=== PATIENT | female | born 1930 | race Caucasian/White ===

== ENCOUNTER 2017-06-14 03:30 | Emergency (ER) | payer MEDICARE, OTHER ==
[~2017-06-14] VITALS: Ht 160 cm; Wt 65.8 kg
[~2017-06-14 03:30] MED LIST: ALBU90OI INH; ASCO1ER; ASCO500; ASPI81EC; ASPI81EC PO; AZIT250 PO; HYDACE5 PO; HYDCHLSU PO; LOSA50; NAPR500 PO; PANT20 PO; PROCODE120 PO; TIOT18 IH; UBID10; VALD20; [UNRECOGNIZED DRUG - OTHER]
[2017-06-14 04:05] LABS: Source, Urine Clean Catch
[2017-06-14 04:24] LABS: Bilirubin, Urine Neg (Neg); Blood, Urine 3+ (Neg); Glucose Qualitative, Urine Neg (Neg); Ketones, Urine Neg (Neg); Leukocyte Esterase, Urine Neg (Neg); Nitrite, Urine Neg (Neg); Protein, Urine Neg (Neg); Urobilinogen, Urine NORM (Normal)
[2017-06-14 04:47] LABS: Appearance, Urine Clear (Clear); Color, Urine Pale Yellow (P-Yellow)
[2017-06-14 04:51] LABS: Bacteria Not Seen /hpf; Red Blood Cells, Urine 0-2 /hpf (0-2); Squamous Epithelial Cells Rare /hpf (Few); White Blood Cells, Urine 0-2 /hpf (0-5)
[2018-03-31] MEDS ORDERED: HYDPAM25 (12:08)
[2018-03-31] MEDS ORDERED: AMIT25 PO (12:08)
[2018-03-31] MEDS ORDERED: MIRT15 PO (12:08)
[2018-03-31] MEDS ORDERED: ZOLP5 PO (12:09)
[2018-03-31] MEDS ORDERED: Benadryl25 MG PO (12:38)
[2018-05-08] MEDS ORDERED: NAPR220 PO (17:54)
== END 2017-06-14 05:06 | disposition home or self-care (01) ==
LOC: ER 03:30
PROVIDERS: Physician Assistant
DX: R68.2 Dry mouth, unspecified (principal); Z79.899 Other long term (current) drug therapy; Z79.82 Long term (current) use of aspirin; Z79.2 Long term (current) use of antibiotics; I10 Essential (primary) hypertension
CPT/HCPCS: 80053; 81001; 83036; 85025; 86038; 86160; 86225; 86235; 99283

== ENCOUNTER 2017-06-28 04:01 | Emergency (ER) | payer MEDICARE, OTHER ==
[~2017-06-28] VITALS: Ht 160 cm; Wt 63.5 kg
[2017-06-28 05:30] LABS: Calcium, Ionized (POC) 1.16 mmol/L (1.10-1.46); Chloride (POC) 102 mmol/L (98-108); Creatinine (POC) 0.7 mg/dL (0.6-1.0); Glucose (ISTAT POC) 120 mg/dL (70-99); Hemoglobin (POC) 12.9 g/dL (12.0-16.0); Potassium (POC) 3.9 mmol/L (3.5-5.5); Sodium (POC) 142 mmol/L (135-148); Total CO2 (POC) 26 mmol/L (21-32)
[2017-06-28 05:38] LABS: Source, Urine Clean Catch
[2017-06-28 05:42] LABS: Bilirubin, Urine Neg (Neg); Blood, Urine 3+ (Neg); Glucose Qualitative, Urine Neg (Neg); Ketones, Urine Neg (Neg); Leukocyte Esterase, Urine 2+ (Neg); Nitrite, Urine Neg (Neg); Protein, Urine Neg (Neg); Urobilinogen, Urine NORM (Normal)
[2017-06-28 05:47] LABS: Appearance, Urine Clear (Clear); Color, Urine Pale Yellow (P-Yellow)
[2017-06-28 05:49] LABS: Bacteria Few /hpf; Red Blood Cells, Urine 0-2 /hpf (0-2); Squamous Epithelial Cells Rare /hpf (Few); White Blood Cells, Urine 0-2 /hpf (0-5)
[2017-06-28] MEDS ORDERED: CEPH500 PO (06:28)
[2018-03-31] MEDS ORDERED: HYDPAM25 (12:08)
[2018-03-31] MEDS ORDERED: MIRT15 PO (12:08)
[2018-03-31] MEDS ORDERED: AMIT25 PO (12:08)
[2018-03-31] MEDS ORDERED: ZOLP5 PO (12:09)
[2018-03-31] MEDS ORDERED: Benadryl25 MG PO (12:38)
[2018-05-08] MEDS ORDERED: NAPR220 PO (17:54)
== END 2017-06-28 06:43 | disposition home or self-care (01) ==
LOC: ER 04:01
PROVIDERS: Emergency Medicine
DX: N39.0 Urinary tract infection, site not specified (principal); Z79.899 Other long term (current) drug therapy; Z79.82 Long term (current) use of aspirin; Z79.2 Long term (current) use of antibiotics; I10 Essential (primary) hypertension
CPT/HCPCS: 80047; 81001; 85014; 87086; 99283

== ENCOUNTER 2017-10-02 04:17 | Emergency (ER) | payer MEDICARE, OTHER ==
[~2017-10-02] VITALS: Ht 162.6 cm; Wt 63.5 kg
[~2017-10-02 04:17] MED LIST changes: +CEPH500 PO
[2017-10-02 05:43] LABS: Source, Urine Voided
[2017-10-02 05:46] LABS: Bilirubin, Urine Neg (Neg); Blood, Urine 3+ (Neg); Glucose Qualitative, Urine Neg (Neg); Ketones, Urine Neg (Neg); Leukocyte Esterase, Urine 3+ (Neg); Nitrite, Urine Neg (Neg); Protein, Urine Neg (Neg); Urobilinogen, Urine NORM (Normal); pH, Urine 6.5 (5.0-8.0)
[2017-10-02 05:47] LABS: BASOPHILS ABSOLUTE AUTO 0.05 K/mm3 (0.00-0.23); BASOPHILS PERCENT AUTO 1 % (0-2); EOSINOPHILS ABSOLUTE AUTO 0.09 K/mm3 (0.00-0.68); EOSINOPHILS PERCENT AUTO 1 % (0-6); Hematocrit 41.8 % (33.0-51.0); Hemoglobin 13.9 g/dL (11.5-16.0); IMMATURE GRAN ABSOLUTE AUTO 0.02 K/mm3 (0.00-0.10); IMMATURE GRAN PERCENT AUTO 0 % (0-1); LYMPHOCYTES ABSOLUTE AUTO 1.71 K/mm3 (0.84-5.20); LYMPHOCYTES PERCENT AUTO 20 % (21-46); MONOCYTES ABSOLUTE AUTO 0.54 K/mm3 (0.16-1.47); MONOCYTES PERCENT AUTO 6 % (4-13); Mean Corpuscular HGB 31.5 pg (26.0-34.0); Mean Corpuscular HGB Conc 33.3 g/dL (31.5-36.5); Mean Corpuscular Volume 95 fL (80-100); Mean Platelet Volume 10.2 fL (9.1-12.4); NEUTROPHILS ABSOLUTE AUTO 6.06 K/mm3 (1.96-9.15); NEUTROPHILS PERCENT AUTO 72 % (41-73); Platelet Count 237 K/mm3 (150-400); RDW Coefficient Variation 13.6 % (11.7-14.2); RDW Standard Deviation 47.7 fL (35.1-46.3); Red Blood Cell Count 4.41 M/mm3 (3.80-5.20); White Blood Cell Count 8.47 K/mm3 (4.00-11.30)
[2017-10-02 05:55] LABS: Appearance, Urine Clear (Clear); Color, Urine Yellow (P-Yellow)
[2017-10-02 05:56] LABS: Bacteria Few /hpf; Squamous Epithelial Cells Few /hpf (Few)
[2017-10-02 06:37] LABS: Alanine Aminotransfer (ALT/SGP 21 U/L (12-78); Albumin, Blood 3.8 g/dL (3.4-5.0); Alk Phos 55 U/L (50-136); Anion Gap 7 mmol/L (6-16); Aspartate Aminotrans (AST/SGOT 25 U/L (12-37); Bilirubin, Total 0.7 mg/dL (0.1-1.0); Blood Urea Nitrogen 13 mg/dL (8-24); Bun/Creatinine Ratio 16.5 (12.0-20.0); CO2, Blood 25 mmol/L (21-32); Calcium, Blood 8.6 mg/dL (8.5-10.1); Chloride, Blood 109 mmol/L (98-108); Creatinine, Blood 0.79 mg/dL (0.40-1.00); Globulin, Blood 3.7 g/dL (2.2-4.0); Glomerular Filtration Rate >60 (60-); Glucose, Blood 121 mg/dL (70-99); Potassium, Blood 4.1 mmol/L (3.5-5.5); Sodium, Blood 141 mmol/L (136-145); Total Protein, Blood 7.5 g/dL (6.4-8.2); Troponin I <0.015 ng/mL (0.000-0.040)
[2017-10-02] MEDS ORDERED: NITR100CA PO (07:10)
== END 2017-10-02 07:47 | disposition home or self-care (01) ==
LOC: ER 04:17
PROVIDERS: Emergency Medicine
DX: R42 Dizziness and giddiness (principal); N39.0 Urinary tract infection, site not specified; I10 Essential (primary) hypertension; Z79.899 Other long term (current) drug therapy; Z79.82 Long term (current) use of aspirin
CPT/HCPCS: 36415; 80053; 81001; 84484; 85025; 87086; 93005; 93010; 99283

== ENCOUNTER → 2017-10-10 | Outpatient (CLI) | payer MEDICARE, OTHER ==
[~2017-10-10] MED LIST changes: +NITR100CA PO
== END ==
LOC: LAB 17:38 → LAB SHORT 17:38
DX: R30.0 Dysuria (principal)
CPT/HCPCS: 87086

== ENCOUNTER → 2017-12-08 | Outpatient (CLI) | payer MEDICARE, OTHER | END | disposition home or self-care (01) | LOC: LAB SHORT 13:00 → LAB 13:00 | DX: R30.0 Dysuria (principal) | CPT/HCPCS: 87086 ==

== ENCOUNTER 2019-05-20 13:39 | Emergency (ER) | payer MEDICARE, OTHER ==
[~2019-05-20] VITALS: Ht 162.6 cm; Wt 61.2 kg
[~2019-05-20 13:39] MED LIST changes: +AMIT25 PO; +Benadryl25 MG PO; +HYDPAM25; +MIRT15 PO; +NAPR220 PO; +ZOLP5 PO
[2019-05-20 14:14] LABS: BASOPHILS ABSOLUTE AUTO 0.03 K/mm3 (0.00-0.23); BASOPHILS PERCENT AUTO 1 % (0-2); EOSINOPHILS ABSOLUTE AUTO 0.06 K/mm3 (0.00-0.68); EOSINOPHILS PERCENT AUTO 1 % (0-6); Hemoglobin 13.1 g/dL (11.5-16.0); IMMATURE GRAN ABSOLUTE AUTO 0.01 K/mm3 (0.00-0.10); IMMATURE GRAN PERCENT AUTO 0 % (0-1); LYMPHOCYTES ABSOLUTE AUTO 1.54 K/mm3 (0.84-5.20); LYMPHOCYTES PERCENT AUTO 27 % (21-46); MONOCYTES PERCENT AUTO 7 % (4-13); Mean Corpuscular HGB 31.3 pg (26.0-34.0); Mean Corpuscular HGB Conc 32.8 g/dL (31.5-36.5); Mean Corpuscular Volume 96 fL (80-100); NEUTROPHILS ABSOLUTE AUTO 3.69 K/mm3 (1.96-9.15); NEUTROPHILS PERCENT AUTO 64 % (41-73); Platelet Count 187 K/mm3 (150-400); RDW Coefficient Variation 13.6 % (11.7-14.2); RDW Standard Deviation 48.5 fL (35.1-46.3); Red Blood Cell Count 4.18 M/mm3 (3.80-5.20); White Blood Cell Count 5.73 K/mm3 (4.00-11.30)
[2019-05-20 14:31] LABS: Source, Urine Clean Catch
[2019-05-20 14:31] LABS: Alanine Aminotransfer (ALT/SGP 24 U/L (12-78); Albumin, Blood 3.7 g/dL (3.4-5.0); Albumin/Globulin Ratio 1.1 (0.8-1.8); Alk Phos 59 U/L (50-136); Anion Gap 7 mmol/L (6-16); Aspartate Aminotrans (AST/SGOT 16 U/L (12-37); Bilirubin, Total 0.3 mg/dL (0.1-1.0); Blood Urea Nitrogen 13 mg/dL (8-24); Bun/Creatinine Ratio 19.6 (12.0-20.0); CO2, Blood 27 mmol/L (21-32); Calcium, Blood 8.6 mg/dL (8.5-10.1); Chloride, Blood 109 mmol/L (98-108); Creatinine, Blood 0.66 mg/dL (0.40-1.00); Globulin, Blood 3.3 g/dL (2.2-4.0); Glomerular Filtration Rate >60 (60-); Glucose, Blood 108 mg/dL (70-99); Potassium, Blood 4.3 mmol/L (3.5-5.5); Sodium, Blood 143 mmol/L (136-145)
[2019-05-20 14:37] LABS: Bilirubin, Urine Neg (Neg); Blood, Urine 1+ (Neg); Glucose Qualitative, Urine Neg (Neg); Ketones, Urine Neg (Neg); Leukocyte Esterase, Urine Neg (Neg); Nitrite, Urine Neg (Neg); Protein, Urine Neg (Neg); Specific Gravity, Urine 1.005 (1.003-1.022); Urobilinogen, Urine NORM (Normal)
[2019-05-20 14:45] LABS: Appearance, Urine Clear (Clear); Color, Urine Pale Yellow (P-Yellow)
[2019-05-20 14:46] LABS: Bacteria Rare /hpf; Red Blood Cells, Urine 0-2 /hpf (0-2); Squamous Epithelial Cells Not Seen /hpf (Few); White Blood Cells, Urine Not Seen /hpf (0-5)
== END 2019-05-20 16:20 | disposition home or self-care (01) ==
LOC: ER 13:39
PROVIDERS: Emergency Medicine
DX: R11.2 Nausea with vomiting, unspecified (principal); R68.2 Dry mouth, unspecified; T50.905A Adverse effect of unspecified drugs, medicaments and biological substances, initial encounter; R19.7 Diarrhea, unspecified; I10 Essential (primary) hypertension; Z79.82 Long term (current) use of aspirin; Z79.899 Other long term (current) drug therapy
CPT/HCPCS: 36415; 80053; 81001; 83690; 85025; 96360; 96361; 99284-25; J7030

== ENCOUNTER → 2019-06-30 | Outpatient (CLI) | payer MEDICARE, OTHER | END | disposition home or self-care (01) | LOC: LAB SHORT 13:40 → LAB 13:40 | DX: R36.0 Urethral discharge without blood (principal) | CPT/HCPCS: 87086 ==

== ENCOUNTER → 2020-08-19 | Outpatient (CLI) | payer MEDICARE, OTHER ==
[2020-08-19 10:26] LABS: BASOPHILS ABSOLUTE AUTO 0.03 K/mm3 (0.00-0.23); BASOPHILS PERCENT AUTO 1 % (0-2); EOSINOPHILS ABSOLUTE AUTO 0.04 K/mm3 (0.00-0.68); EOSINOPHILS PERCENT AUTO 1 % (0-6); Hematocrit 41.4 % (33.0-51.0); Hemoglobin 13.6 g/dL (11.5-16.0); IMMATURE GRAN ABSOLUTE AUTO 0.01 K/mm3 (0.00-0.10); IMMATURE GRAN PERCENT AUTO 0 % (0-1); LYMPHOCYTES ABSOLUTE AUTO 0.89 K/mm3 (0.84-5.20); LYMPHOCYTES PERCENT AUTO 24 % (21-46); MONOCYTES ABSOLUTE AUTO 0.25 K/mm3 (0.16-1.47); MONOCYTES PERCENT AUTO 7 % (4-13); Mean Corpuscular HGB 31.4 pg (26.0-34.0); Mean Corpuscular HGB Conc 32.9 g/dL (31.5-36.5); Mean Corpuscular Volume 96 fL (80-100); Mean Platelet Volume 10.2 fL (9.1-12.4); NEUTROPHILS ABSOLUTE AUTO 2.52 K/mm3 (1.96-9.15); NEUTROPHILS PERCENT AUTO 67 % (41-73); Platelet Count 171 K/mm3 (150-400); RDW Coefficient Variation 13.2 % (11.7-14.2); RDW Standard Deviation 47.4 fL (35.1-46.3); Red Blood Cell Count 4.33 M/mm3 (3.80-5.20); White Blood Cell Count 3.74 K/mm3 (4.00-11.30)
[2020-08-19 10:43] LABS: Alanine Aminotransfer (ALT/SGP 17 U/L (12-78); Albumin/Globulin Ratio 1.1 (0.8-1.8); Alk Phos 63 U/L (40-126); Anion Gap 10 mmol/L (6-16); Aspartate Aminotrans (AST/SGOT 15 U/L (12-37); Bilirubin, Total 0.5 mg/dL (0.1-1.0); Blood Urea Nitrogen 13 mg/dL (8-24); Bun/Creatinine Ratio 14.9 (12.0-20.0); CO2, Blood 29 mmol/L (21-32); Calcium, Blood 9.1 mg/dL (8.5-10.1); Chloride, Blood 105 mmol/L (98-108); Creatinine, Blood 0.87 mg/dL (0.40-1.00); Globulin, Blood 3.7 g/dL (2.2-4.0); Glomerular Filtration Rate >60 (60-); Glucose, Blood 152 mg/dL (70-99); Potassium, Blood 3.8 mmol/L (3.5-5.5); Sodium, Blood 144 mmol/L (136-145); Thyroid Stimulating Hormone 2.825 uIU/mL (0.360-4.800); Total Protein, Blood 7.7 g/dL (6.4-8.2)
== END | disposition home or self-care (01) ==
LOC: LAB SHORT 10:22 → LAB EV 10:22
PROVIDERS: Family Medicine
DX: G64 Other disorders of peripheral nervous system (principal); Z79.899 Other long term (current) drug therapy
CPT/HCPCS: 80053; 82607; 82746; 84443; 85025

== ENCOUNTER → 2020-12-05 | Outpatient (CLI) | payer MEDICARE, OTHER | END | disposition home or self-care (01) | LOC: LAB 10:55 → LAB SHORT 10:55 | DX: R20.2 Paresthesia of skin (principal) | CPT/HCPCS: 87086 ==

== ENCOUNTER 2021-06-15 06:50 | Inpatient (IN) | payer MEDICARE, OTHER ==
[~2021-06-15] VITALS: Ht 160 cm; Wt 48.1 kg
[2021-06-15 08:49] LABS: BASOPHILS ABSOLUTE AUTO 0.02 K/mm3 (0.00-0.23); BASOPHILS PERCENT AUTO 0 % (0-2); EOSINOPHILS ABSOLUTE AUTO 0.04 K/mm3 (0.00-0.68); EOSINOPHILS PERCENT AUTO 1 % (0-6); Hematocrit 37.8 % (33.0-51.0); Hemoglobin 12.4 g/dL (11.5-16.0); IMMATURE GRAN ABSOLUTE AUTO 0.03 K/mm3 (0.00-0.10); IMMATURE GRAN PERCENT AUTO 1 % (0-1); LYMPHOCYTES ABSOLUTE AUTO 0.86 K/mm3 (0.84-5.20); LYMPHOCYTES PERCENT AUTO 17 % (21-46); MONOCYTES PERCENT AUTO 6 % (4-13); Mean Corpuscular HGB 31.6 pg (26.0-34.0); Mean Corpuscular HGB Conc 32.8 g/dL (31.5-36.5); Mean Corpuscular Volume 96 fL (80-100); Mean Platelet Volume 10.1 fL (9.1-12.4); NEUTROPHILS ABSOLUTE AUTO 3.81 K/mm3 (1.96-9.15); NEUTROPHILS PERCENT AUTO 75 % (41-73); Platelet Count 141 K/mm3 (150-400); RDW Coefficient Variation 13.5 % (11.7-14.2); RDW Standard Deviation 48.4 fL (35.1-46.3); Red Blood Cell Count 3.93 M/mm3 (3.80-5.20); White Blood Cell Count 5.06 K/mm3 (4.00-11.30)
[2021-06-15 09:14] LABS: Anion Gap 4 mmol/L (6-16); Blood Urea Nitrogen 14 mg/dL (8-24); Bun/Creatinine Ratio 21.2 (12.0-20.0); CO2, Blood 29 mmol/L (21-32); Calcium, Blood 8.6 mg/dL (8.5-10.1); Chloride, Blood 107 mmol/L (98-108); Creatinine, Blood 0.66 mg/dL (0.40-1.00); Glomerular Filtration Rate >60 (60-); Glucose, Blood 103 mg/dL (70-99); Potassium, Blood 4.2 mmol/L (3.5-5.5); Sodium, Blood 140 mmol/L (136-145)
[2021-06-15 09:24] LABS: Influenza A, PCR NEGATIVE (NEGATIVE); Influenza B, PCR NEGATIVE (NEGATIVE); Resp Syncytial Virus, PCR NEGATIVE (NEGATIVE); SARS-Cov-2 (COVID-19) PCR, MMC NEGATIVE (NEGATIVE)
--- NOTE | 2021-06-15 11:32 | NUR ---
PT TO SDS FROM ED. REPORTS NPO SINCE LAST NOC. History, Chart, Medications and Allergies reviewed before start of procedure. Lungs clear T/O to Auscultation. DAUGHTER AT BEDSIDE. L RING FINGER RINGS TAPED, REFUSAL TO REMOVE JEWELRY PAPERWORK SIGNED. UNDERWOOD CATH IN PLACE FROM ED. WENDY GONZALEZ IN PLACE.
--- NOTE | 2021-06-15 13:28 | NUR ---
06/15/21 1328 Mishel Schwartz PATIENT ARRIVED TO OR WITH UNDERWOOD CATHETER IN PLACE DRAINING YELLOW URINE.
[2021-06-15] MEDS ORDERED: CLON2 PO (16:28)
[2021-06-15] MEDS ORDERED: OLAN5 PO (16:29)
--- NOTE | 2021-06-15 19:37 | NUR ---
SHIFT SUMMARY POD0 R PERCUTANEOUS PINNING, A/O X4, VSS, TOLERATING PO, HOME MEDS ADDRESSED BY PT FAMILY WHICH WAS DISCUSSED c ADMITTING PHYSICIAN. PAIN TOLERABLE SO FAR PER PATIENT. ADMISSION COMPLETED, PT/OT ORDERED, WBAT. NO ACUTE EVENTS THIS SHIFT, CALL LIGHT IN REACH, REPORT GIVEN TO DAY RN.
--- NOTE | 2021-06-16 04:55 | NUR ---
PT IS ALERT AND ORIENTED X4. TOOK PILLS WITHOUT DIFFICULTIES. LUNGS CLEAR. BS HYPO. INCISION COVER WITH DRESSING. SKIN INTACT. PAIN MED GIVEN ONCE. PT SLEEPING FOR MOST OF THE NIGHT. UNDERWOOD CATH; CLEAR YELLOW URINE. VSS.
--- NOTE | 2021-06-16 19:06 | NUR ---
SHIFT SUMMARY POD 1 R HIP PERCUTANEOUS PINNING, A/O X4, VSS, TOLERATING PO, PAIN MANAGED PER EMAR, PT/OT TODAY AND ABLE TO STAND PIVOT c SOME WEAKNESS ON HER RIGHT SIDE, FAMILY IN TO VISIT DURING VISITING HOURS, NO ACUTE EVENTS THIS SHIFT. CALL LIGHT IN REACH, WILL CTM AND REPORT TO ONCOMING DAY RN.
--- NOTE | 2021-06-17 04:33 | NUR ---
SHIFT SUMMARY A/OX3, FORGETFUL AT TIMES. DENIES PAIN OR SOB. AQUACEL TO R. HIP C/D/I WITH SCANT DRAINAGE. VSS, NO ACUTE CHANGES AT THIS TIME. BED IN LOWEST POSITION WITH CALL LIGHT IN REACH. WILL CONTINUE TO MONITOR AND REPORT TO ONCOMING RN.
--- NOTE | 2021-06-17 17:32 | NUR ---
SUMMARY NO ACUTE CHANGES T/O SHIFT. PT WORKED WITH THERAPY THIS AM. SAT UP IN CHAIR OFF AND ON AND USED BSC TO VOID. PT WEAK, LEG BUCKLED ONCE WHEN TAKING STEP W/RN. GAIT BELT AND FWW WERE IN USE. PT SITTING UP IN CHAIR, EATING DINNER AT THIS TIME. DAUGHTER AT BEDSIDE.
--- NOTE | 2021-06-18 06:43 | NUR ---
SHIFT SUMMARY: PT POD#3 FOR A RIGHT HIP REPAIR. AQUACEL DRESSING C/D/I WITH A SCANT AMOUNT OF BLOODY DRG PRESENT. PT A&O X4. VSS. UNABLE TO VOID THIS SHIFT; ORDER OBTAINED FOR STRAIGHT CATH WITH 510CC OUT OF CLEAR YELLOW URINE. PAIN MANAGED WITH 5MG OXY AND TYLENOL PER EMAR. PT MEDICATED ONCE. PT APPEARS TO BE RESTING MOST OF SHIFT.
[2021-06-18 11:31] LABS: Influenza A, PCR NEGATIVE (NEGATIVE); Influenza B, PCR NEGATIVE (NEGATIVE); Resp Syncytial Virus, PCR NEGATIVE (NEGATIVE); SARS-Cov-2 (COVID-19) PCR, MMC NEGATIVE (NEGATIVE)
--- NOTE | 2021-06-18 13:10 | NUR ---
CALLED REPORT TO [facility]. PT LEFT UNIT IN WC W/POSSESSIONS AND DC PACKET VIA TRANSPORT.
== END 2021-06-18 13:05 | DRG 481 ==
LOC: ER 06:50 → SURS 09:55 → ERHOLD 09:55 → SURS 10:34
PROVIDERS: Emergency Medicine; Internal Medicine; Orthopaedic Surgery; ADMIT Internal Medicine
PROC: 0QH634Z Insertion of Internal Fixation Device into Right Upper Femur, Percutaneous Approach (ICD-10-PCS; principal; 2021-06-15 12:45)
DX: S72.011A Unspecified intracapsular fracture of right femur, initial encounter for closed fracture (principal); E46 Unspecified protein-calorie malnutrition; Z68.1 Body mass index [BMI] 19.9 or less, adult; Z20.822 Contact with and (suspected) exposure to COVID-19; Z66 Do not resuscitate; F03.90 Unspecified dementia, unspecified severity, without behavioral disturbance, psychotic disturbance, mood disturbance, and anxiety; I10 Essential (primary) hypertension; G47.00 Insomnia, unspecified; Z98.890 Other specified postprocedural states; Z79.82 Long term (current) use of aspirin; Z79.899 Other long term (current) drug therapy; W18.39XA Other fall on same level, initial encounter
CPT/HCPCS: 0241U; 51702; 73502; 73562-RT; 80048; 85025; 93005; 93010; 97110; 97162; 97166; 97530; 97535; 99285-25; A9270; C1713; C1769; J0171; J0690; J1100; J2250; J2370; J2405; J2704; J3010; J7120

== ENCOUNTER → 2021-11-17 | Outpatient (CLI) | payer MEDICARE, OTHER ==
[~2021-11-17] MED LIST changes: +CLON2 PO; +OLAN5 PO
[2021-11-17 16:51] LABS: BASOPHILS ABSOLUTE AUTO 0.03 K/mm3 (0.00-0.23); BASOPHILS PERCENT AUTO 1 % (0-2); EOSINOPHILS ABSOLUTE AUTO 0.03 K/mm3 (0.00-0.68); EOSINOPHILS PERCENT AUTO 1 % (0-6); Hemoglobin 13.6 g/dL (11.5-16.0); IMMATURE GRAN ABSOLUTE AUTO 0.01 K/mm3 (0.00-0.10); IMMATURE GRAN PERCENT AUTO 0 % (0-1); LYMPHOCYTES ABSOLUTE AUTO 1.47 K/mm3 (0.84-5.20); LYMPHOCYTES PERCENT AUTO 27 % (21-46); MONOCYTES ABSOLUTE AUTO 0.42 K/mm3 (0.16-1.47); MONOCYTES PERCENT AUTO 8 % (4-13); Mean Corpuscular HGB 30.8 pg (26.0-34.0); Mean Corpuscular Volume 91 fL (80-100); Mean Platelet Volume 10.1 fL (9.1-12.4); NEUTROPHILS ABSOLUTE AUTO 3.42 K/mm3 (1.96-9.15); NEUTROPHILS PERCENT AUTO 64 % (41-73); Platelet Count 197 K/mm3 (150-400); RDW Coefficient Variation 14.7 % (11.7-14.2); Red Blood Cell Count 4.42 M/mm3 (3.80-5.20); White Blood Cell Count 5.38 K/mm3 (4.00-11.30)
[2021-11-17 17:24] LABS: Albumin, Blood 4.1 g/dL (3.4-5.0); Albumin/Globulin Ratio 1.1 (0.8-1.8); Bilirubin, Total 0.4 mg/dL (0.1-1.0); Bun/Creatinine Ratio 21.4 (12.0-20.0); Calcium, Blood 9.2 mg/dL (8.5-10.1); Creatinine, Blood 0.75 mg/dL (0.40-1.00); Globulin, Blood 3.6 g/dL (2.2-4.0); Potassium, Blood 4.1 mmol/L (3.5-5.5); Thyroid Stimulating Hormone 2.63 uIU/mL (0.360-4.800); Total Protein, Blood 7.7 g/dL (6.4-8.2)
== END ==
LOC: LAB SHORT 16:43 → LAB 16:43
PROVIDERS: Physician Assistant
DX: R53.83 Other fatigue (principal); R20.9 Unspecified disturbances of skin sensation
CPT/HCPCS: 80053; 84443; 85025

== ENCOUNTER → 2022-01-05 | Outpatient (CLI) | payer MEDICARE, OTHER ==
[2022-01-05 18:29] LABS: Albumin, Blood 4.1 g/dL (3.4-5.0); Albumin/Globulin Ratio 1.2 (0.8-1.8); Bilirubin, Total 0.5 mg/dL (0.1-1.0); Bun/Creatinine Ratio 24.6 (12.0-20.0); Calcium, Blood 9.4 mg/dL (8.5-10.1); Creatinine, Blood 0.53 mg/dL (0.40-1.00); Globulin, Blood 3.5 g/dL (2.2-4.0); Potassium, Blood 3.8 mmol/L (3.5-5.5); Total Protein, Blood 7.6 g/dL (6.4-8.2)
== END | disposition home or self-care (01) ==
LOC: LAB 18:04 → LAB SHORT 18:04
PROVIDERS: Nurse Practitioner
DX: G60.9 Hereditary and idiopathic neuropathy, unspecified (principal); R68.2 Dry mouth, unspecified; R20.0 Anesthesia of skin
CPT/HCPCS: 80053; 82607; 82746